=== PATIENT | male | born 1970 | race Two or more races ===

== ENCOUNTER 2019-04-28 10:13 | Emergency (ER) | payer OTHER ==
[2019-04-28] MEDS ORDERED: Sodium Chloride 0.9% 2.5 ML Syringe FLUSH PRN (10:21)
[2019-04-28] MEDS ORDERED: Sodium Chloride 0.9% 10 ML Syringe FLUSH PRN (10:21)
[2019-04-28] MEDS ORDERED: Alum Hydrox/Mag Hydrox/Simeth 15 ML, Lidocaine 2% 5 ML PO ONE ×2 (10:21)
[2019-04-28] MEDS ORDERED: Famotidine 20 MG/2 ML SDV IVPUSH ONE (10:21)
[2019-04-28] MEDS ORDERED: Nitroglycerin 0.4 MG Tab.SL SL PRN (10:51)
[2019-04-28] MEDS ORDERED: Aspirin 81 MG Tab.Chew PO ONE (10:51)
--- NOTE | 2019-04-28 10:51 | EDM.PDOC ---
ED HPI GENERAL MEDICAL PROBLEM - General Chief Complaint: Chest Pain Stated Complaint: CHEST DISCOMFORT Time Seen by Provider: 04/28/19 10:14 Source of Information: Reports: Patient History Limitations: Reports: No Limitations - History of Present Illness INITIAL COMMENTS - FREE TEXT/NARRATIVE: History of present illness: []Patient has had 5 days of constant epigastric and chest pain that is waxing and waning but has not subsided. He denies any sweating, shortness of breath, dizziness, nausea or vomiting. He has a known history of high blood pressure but does not take medications for it any longer. He took some in the past that made his face swell and never restarted any blood pressure meds. Review of systems: As per history of present illness and below otherwise all systems reviewed and negative. Past medical history: As per history of present illness and as reviewed below otherwise noncontributory. Surgical history: As per history of present illness and as reviewed below otherwise noncontributory. Social history: No reported history of drug or alcohol abuse. Family history: As per history of present illness and as reviewed below otherwise noncontributory. Physical exam: General: Well developed, well nourished in NAD HEENT: Atraumatic, normocephalic, pupils reactive, negative for conjunctival pallor or scleral icterus, mucous membranes moist, throat clear, neck supple, nontender, trachea midline. Lungs: Clear to auscultation, breath sounds equal bilaterally, chest nontender. Heart: S1S2, regular, negative for clicks, rubs, or JVD. Abdomen: NABS, Soft, nondistended, nontender. Negative for masses or hepatosplenomegaly. Negative for costovertebral tenderness. Pelvis: Stable nontender. Genitourinary: Deferred. Rectal: Deferred. Extremities: Atraumatic, negative for cords or calf pain. Neurovascular unremarkable. Neuro: Awake, alert, oriented. Cranial nerves II through XII unremarkable. Cerebellum unremarkable. Motor and sensory unremarkable throughout. Exam nonfocal. Skin:warm and dry Diagnostics: EKG, as chest x-ray, CBC, chemistry, troponin Therapeutics: GI cocktail with relief, one nitroglycerin improved blood pressure ED Course: Improved Impression: Uncontrolled hypertension and chest pain Prescriptions: Metoprolol Plan: Take a baby aspirin a day,Take meds as directed, follow up with your primary care physician, return to ER if symptoms worsen or change. Definitive disposition and diagnosis as appropriate pending reevaluation and review of above. Chest Pain Score (Numeric/FACES): 5 - Related Data Allergies Allergy/AdvReac Type Severity Reaction Status Date / Time No Known Allergies Allergy Verified 04/28/19 10:24 Home Meds: Home Meds Metoprolol Tartrate 25 mg PO BID #15 tablet 04/28/19 [Rx] Past Medical History Cardiovascular History: Reports: Hypertension - Past Surgical History Cardiovascular Surgical History: Reports: None Social & Family History - Family History Family Medical History: Noncontributory - Tobacco Use Smoking Status *Q: Never Smoker - Recreational Drug Use Recreational Drug Use: No ED ROS GENERAL - Review of Systems Review Of Systems: See Below ED EXAM, GENERAL - Physical Exam Exam: See Below Course - Vital Signs Last Recorded V/S: Last Vital Signs Temp 97.4 F 04/28/19 10:25 Pulse 88 04/28/19 11:11 Resp 16 04/28/19 11:11 BP 155/96 H 04/28/19 11:11 Pulse Ox 95 04/28/19 11:11 - Orders/Labs/Meds Orders: Active Orders 24 hr Category Date Time Status Cardiac Monitoring [RC] . DIRECTED Care 04/28/19 10:20 Active Nitroglycerin [Nitrostat] Med 04/28/19 10:51 Active 0.4 mg SL Q5M PRN Sodium Chloride 0.9% [Saline Flush] Med 04/28/19 10:21 Active 10 ml FLUSH ASDIRECTED PRN Sodium Chloride 0.9% [Saline Flush] Med 04/28/19 10:21 Active 2.5 ml FLUSH ASDIRECTED PRN Saline Lock Insert [OM.PC] Stat Oth 04/28/19 10:20 Ordered Medication Orders Nitroglycerin (Nitrostat) 0.4 mg SL Q5M PRN PRN Reason: Chest Pain Last Admin: 04/28/19 11:05 Dose: 0.4 mg Sodium Chloride (Saline Flush) 10 ml FLUSH ASDIRECTED PRN PRN Reason: Keep Vein Open Sodium Chloride (Saline Flush) 2.5 ml FLUSH ASDIRECTED PRN PRN Reason: Keep Vein Open Labs: Laboratory Tests 04/28/19 04/28/19 Range/Units 10:18 10:18 WBC 7.05 (4.0-11.0) K/uL RBC 5.42 (4.50-5.90) M/uL Hgb 16.6 (13.0-17.0) g/dL Hct 47.7 (38.0-50.0) % MCV 88.0 (80.0-98.0) fL MCH 30.6 (27.0-32.0) pg MCHC 34.8 (31.0-37.0) g/dL RDW Std Deviation 43.5 (28.0-62.0) fl RDW Coeff of [place]aga 14 (11.0-15.0) % Plt Count 245 (150-400) K/uL MPV 10.60 (7.40-12.00) fL Neut % (Auto) 55.0 (48.0-80.0) % Lymph % (Auto) 30.2 (16.0-40.0) % [place] % (Auto) 10.4 (0.0-15.0) % Eos % (Auto) 3.7 (0.0-7.0) % Baso % (Auto) 0.7 (0.0-1.5) % Neut # (Auto) 3.9 (1.4-5.7) K/uL Lymph # (Auto) 2.1 (0.6-2.4) K/uL [place] # (Auto) 0.7 (0.0-0.8) K/uL Eos # (Auto) 0.3 (0.0-0.7) K/uL Baso # (Auto) 0.1 (0.0-0.1) K/uL Nucleated RBC % 0.0 /100WBC Nucleated RBCs # 0 K/uL Sodium 141 (136-148) mmol/L Potassium 3.3 L (3.5-5.1) mmol/L Chloride 104 (98-107) mmol/L Carbon Dioxide 27.8 (21.0-32.0) mmol/L BUN 13 (7.0-18.0) mg/dL Creatinine 1.0 (0.8-1.3) mg/dL Est Cr Clr Drug Dosing 86.30 mL/min Estimated GFR (MDRD) > 60.0 ml/min Glucose 113 H (74-106) mg/dL Calcium 8.2 L (8.5-10.1) mg/dL Total Bilirubin 0.4 (0.2-1.0) mg/dL AST 21 (15-37) IU/L ALT 32 (14-63) IU/L Alkaline Phosphatase 157 H (46-116) U/L Troponin I < 0.050 (0.000-0.056) ng/mL Total Protein 7.4 (6.4-8.2) g/dL Albumin 3.5 (3.4-5.0) g/dL Globulin 3.9 (2.6-4.0) g/dL Albumin/Globulin Ratio 0.9 (0.9-1.6) Meds: Medications Generic Name Dose Route Start Last Admin Trade Name Freq PRN Reason Stop Dose Admin Nitroglycerin 0.4 mg 04/28/19 10:51 04/28/19 11:05 Nitrostat SL 0.4 mg Q5M PRN Administration Chest Pain Sodium Chloride 10 ml 04/28/19 10:21 Saline Flush FLUSH ASDIRECTED PRN Keep Vein Open Sodium Chloride 2.5 ml 04/28/19 10:21 Saline Flush FLUSH ASDIRECTED PRN Keep Vein Open Discontinued Medications Generic Name Dose Route Start Last Admin Trade Name Freq PRN Reason Stop Dose Admin Aspirin 324 mg 04/28/19 10:51 04/28/19 11:04 Aspirin PO 04/28/19 10:52 324 mg ONETIME ONE Administration Al Hydroxide/Mg Hydroxide 15 0 ml 04/28/19 10:21 04/28/19 10:31 ml/ Lidocaine HCl 5 ml PO 04/28/19 10:22 1 each ONETIME ONE Administration Famotidine 20 mg 04/28/19 10:21 04/28/19 10:33 Pepcid IVPUSH 04/28/19 10:22 20 mg ONETIME ONE Administration Departure - Departure Time of Disposition: 11:15 Disposition: Home, Self-Care 01 Condition: Good Clinical Impression: Uncontrolled hypertension Prescriptions: Metoprolol Tartrate 25 mg PO BID #15 tablet Forms: ED Department Discharge Additional Instructions: The following information is given to patients seen in the emergency department who are being discharged to home. This information is to outline your options for follow-up care. We provide all patients seen in our emergency department with a follow-up referral. The need for follow-up, as well as the timing and circumstances, are variable depending upon the specifics of your emergency department visit. If you don't have a primary care physician on staff, we will provide you with a referral. We always advise you to contact your personal physician following an emergency department visit to inform them of the circumstance of the visit and for follow-up with them and/or the need for any referrals to a consulting specialist. The emergency department will also refer you to a specialist when appropriate. This referral assures that you have the opportunity for follow-up care with a specialist. All of these measure are taken in an effort to provide you with optimal care, which includes your follow-up. Under all circumstances we always encourage you to contact your private physician who remains a resource for coordinating your care. When calling for follow-up care, please make the office aware that this follow-up is from your recent emergency room visit. If for any reason you are refused follow-up, please contact the [facility] Emergency Department at and asked to speak to the emergency department charge nurse. Take meds as directed, follow up with your primary care physician, return to ER if symptoms worsen or change. [facility] [address] [place] [address] - My Orders Last 24 Hours: My Active Orders 04/28/19 10:20 Cardiac Monitoring [RC] . DIRECTED Saline Lock Insert [OM.PC] Stat 04/28/19 10:21 Sodium Chloride 0.9% [Saline Flush] 10 ml FLUSH ASDIRECTED PRN Sodium Chloride 0.9% [Saline Flush] 2.5 ml FLUSH ASDIRECTED PRN 04/28/19 10:51 Nitroglycerin [Nitrostat] 0.4 mg SL Q5M PRN - Assessment/Plan Last 24 Hours: My Active Orders 04/28/19 10:20 Cardiac Monitoring [RC] . DIRECTED Saline Lock Insert [OM.PC] Stat 04/28/19 10:21 Sodium Chloride 0.9% [Saline Flush] 10 ml FLUSH ASDIRECTED PRN Sodium Chloride 0.9% [Saline Flush] 2.5 ml FLUSH ASDIRECTED PRN 04/28/19 10:51 Nitroglycerin [Nitrostat] 0.4 mg SL Q5M PRN
[2019-04-28 11:02] LABS: BLOOD UREA NITROGEN,BUN 13 mg/dL (7.0-18.0); CARBON DIOXIDE,CO2 27.8 mmol/L (21.0-32.0); CHLORIDE,CL 104 mmol/L (98-107); GLUCOSE RANDOM 113 mg/dL (74-106); POTASSIUM,K 3.3 mmol/L (3.5-5.1); SODIUM,NA 141 mmol/L (136-148)
--- NOTE | 2019-04-28 11:13 | CR ---
INDICATION: Chest pain and tightness. TECHNIQUE: AP portable chest x-ray. FINDINGS: Heart is upper limits of normal. No focal dense infiltrate or consolidation in either lung. Mild peribronchial cuffing in the right hilar region could be related bronchial inflammation or edema. Shallow inspiration. Chest otherwise negative. Dictated by Fausto Neff MD @ Apr 28 2019 11:10AM Signed by Dr. Fausto Neff @ Apr 28 2019 11:11AM
== END 2019-04-28 11:36 | disposition home or self-care (01) ==
LOC: MW.ED 10:13
DX: R07.9 Chest pain, unspecified (principal); I10 Essential (primary) hypertension; Z79.899 Other long term (current) drug therapy
CPT/HCPCS: 36415; 71045; 80053; 84484; 85025; 93005; 96374; 99285; A9270; S0028; J3490

== ENCOUNTER 2019-05-01 23:03 | Emergency (ER) | payer OTHER ==
[2019-05-01] MEDS ORDERED: Aspirin 81 MG Tab.Chew PO ONE (23:18)
--- NOTE | 2019-05-01 23:20 | EDM.PDOC ---
<Elsy Logan - Last Filed: 05/01/19 23:53> ED HPI GENERAL MEDICAL PROBLEM - General Chief Complaint: Chest Pain Stated Complaint: PRESSURE ON CHEST Time Seen by Provider: 05/01/19 23:04 Source of Information: Reports: Patient History Limitations: Reports: No Limitations - History of Present Illness INITIAL COMMENTS - FREE TEXT/NARRATIVE: HISTORY AND PHYSICAL: History of present illness: Patient is a 48-year-old male who presents to the ED today with concern of a 4 out of 10 chest discomfort on the right side of the sternum and radiates into his back. Patient states his symptoms have been ongoing since the last time he was seen in the ED and have not gone away. Patient states his pain is worse with activity and better with rest. Patient was seen on 04/28/19 and had a cardiac workup at that time. Patient states since then the chest pain hasn't gotten worse but also hasn't gotten better. Patient states he has been taking the blood pressure medication that was prescribed to him that his blood pressure has still been high. Patient denies any other symptoms or concerns or any other health history. Patient denies fever, chills, shortness of breath, or cough. Denies headache, neck stiff ness, change in vision, syncope, or near syncope. Denies nausea, vomiting, abdominal pain, diarrhea, constipation, or dysuria. Has not noted any blood in urine or stool. Patient has been eating and drinking appropriately. Review of systems: As per history of present illness and below otherwise all systems reviewed and negative. Past medical history: As per history of present illness and as reviewed below otherwise noncontributory. Surgical history: As per history of present illness and as reviewed below otherwise noncontributory. Social history: See social history for further information Family history: As per history of present illness and as reviewed below otherwise noncontributory. Physical exam: General: Patient is alert, oriented, and in no acute distress. Patient laying comfortably on exam table. HEENT: Atraumatic, normocephalic, pupils equal and reactive bilaterally, negative for conjunctival pallor or scleral icterus, mucous membranes moist, TMs normal bilaterally, throat clear, neck supple, nontender, trachea midline. No drooling or trismus noted. No meningeal signs. No hot potato voice noted. Lungs: Clear to auscultation, breath sounds equal bilaterally, chest nontender. Heart: S1S2, regular rate and rhythm without overt murmur Abdomen: Soft, nondistended, nontender. Negative for masses or hepatosplenomegaly. Negative for costovertebral tenderness. Pelvis: Stable nontender. Genitourinary: Deferred. Rectal: Deferred. Skin: Intact, warm, dry. No lesions or rashes noted. Extremities: Atraumatic, negative for cords or calf pain. Neurovascular unremarkable. Neuro: Awake, alert, oriented. Cranial nerves II through XII unremarkable. Cerebellum unremarkable. Motor and sensory unremarkable throughout. Exam nonfocal. Notes: Dr. Tesfaye has assumed care of patient and will follow remaining diagnostics and disposition . Diagnostics: CBC, CMP, UA, EKG, chest x-ray, troponin Therapeutics: Saline lock, aspirin, nitroglycerin Prescription: Impression: Chest pain Hypertension Plan: Definitive disposition and diagnosis as appropriate pending reevaluation and review of above. chest Pain Score (Numeric/FACES): 4 - Related Data Allergies Allergy/AdvReac Type Severity Reaction Status Date / Time No Known Allergies Allergy Verified 05/01/19 23:19 Home Meds: Home Meds Metoprolol Tartrate 25 mg PO BID #15 tablet 04/28/19 [Rx] Past Medical History Cardiovascular History: Reports: Hypertension - Past Surgical History Cardiovascular Surgical History: Reports: None Social & Family History - Family History Family Medical History: Noncontributory ED ROS GENERAL - Review of Systems Review Of Systems: ROS reveals no pertinent complaints other than HPI. ED EXAM, GENERAL - Physical Exam Exam: See Below (See dictation) Course - Vital Signs Last Recorded V/S: Last Vital Signs Temp 35.7 C 05/01/19 23:07 Pulse 62 05/02/19 00:51 Resp 18 05/02/19 00:51 BP 141/94 H 05/02/19 00:51 Pulse Ox 97 05/02/19 00:51 - Orders/Labs/Meds Orders: Active Orders 24 hr Category Date Time Status EKG Documentation Completion [RC] STAT Care 05/01/19 23:05 Active Labs: Laboratory Tests 05/01/19 05/01/19 05/01/19 Range/Units 23:25 23:25 23:25 WBC 7.65 (4.0-11.0) K/uL RBC 5.33 (4.50-5.90) M/uL Hgb 16.4 (13.0-17.0) g/dL Hct 46.6 (38.0-50.0) % MCV 87.4 (80.0-98.0) fL MCH 30.8 (27.0-32.0) pg MCHC 35.2 (31.0-37.0) g/dL RDW Std Deviation 42.5 (28.0-62.0) fl RDW Coeff of [place]aga 13 (11.0-15.0) % Plt Count 254 (150-400) K/uL MPV 10.60 (7.40-12.00) fL Neut % (Auto) 57.0 (48.0-80.0) % Lymph % (Auto) 26.5 (16.0-40.0) % [place] % (Auto) 12.8 (0.0-15.0) % Eos % (Auto) 3.0 (0.0-7.0) % Baso % (Auto) 0.7 (0.0-1.5) % Neut # (Auto) 4.4 (1.4-5.7) K/uL Lymph # (Auto) 2.0 (0.6-2.4) K/uL [place] # (Auto) 1.0 H (0.0-0.8) K/uL Eos # (Auto) 0.2 (0.0-0.7) K/uL Baso # (Auto) 0.1 (0.0-0.1) K/uL Nucleated RBC % 0.0 /100WBC Nucleated RBCs # 0 K/uL INR 0.95 Sodium (136-148) mmol/L Potassium (3.5-5.1) mmol/L Chloride (98-107) mmol/L Carbon Dioxide (21.0-32.0) mmol/L BUN (7.0-18.0) mg/dL Creatinine (0.8-1.3) mg/dL Est Cr Clr Drug Dosing mL/min Estimated GFR (MDRD) ml/min Glucose (74-106) mg/dL Calcium (8.5-10.1) mg/dL Total Bilirubin (0.2-1.0) mg/dL AST (15-37) IU/L ALT (14-63) IU/L Alkaline Phosphatase (46-116) U/L Troponin I (0.000-0.056) ng/mL Total Protein (6.4-8.2) g/dL Albumin (3.4-5.0) g/dL Globulin (2.6-4.0) g/dL Albumin/Globulin Ratio (0.9-1.6) Urine Color YELLOW Urine Appearance CLEAR Urine pH 6.0 (5.0-8.0) Ur Specific [place] 1.025 (1.001-1.035) Urine Protein TRACE H (NEGATIVE) mg/dL Urine Glucose (UA) NEGATIVE (NEGATIVE) mg/dL Urine Ketones NEGATIVE (NEGATIVE) mg/dL Urine Occult Blood SMALL H (NEGATIVE) Urine Nitrite NEGATIVE (NEGATIVE) Urine Bilirubin NEGATIVE (NEGATIVE) Urine Urobilinogen 0.2 (<2.0) EU/dL Ur Leukocyte Esterase NEGATIVE (NEGATIVE) Urine RBC 1-3 (0-2/HPF) Urine WBC 0-1 (0-5/HPF) Ur Epithelial Cells RARE (NONE-FEW) Urine Bacteria RARE (NEGATIVE) 05/01/19 Range/Units 23:25 WBC (4.0-11.0) K/uL RBC (4.50-5.90) M/uL Hgb (13.0-17.0) g/dL Hct (38.0-50.0) % MCV (80.0-98.0) fL MCH (27.0-32.0) pg MCHC (31.0-37.0) g/dL RDW Std Deviation (28.0-62.0) fl RDW Coeff of [place] (11.0-15.0) % Plt Count (150-400) K/uL MPV (7.40-12.00) fL Neut % (Auto) (48.0-80.0) % Lymph % (Auto) (16.0-40.0) % [place] % (Auto) (0.0-15.0) % Eos % (Auto) (0.0-7.0) % Baso % (Auto) (0.0-1.5) % Neut # (Auto) (1.4-5.7) K/uL Lymph # (Auto) (0.6-2.4) K/uL [place] # (Auto) (0.0-0.8) K/uL Eos # (Auto) (0.0-0.7) K/uL Baso # (Auto) (0.0-0.1) K/uL Nucleated RBC % /100WBC Nucleated RBCs # K/uL INR Sodium 140 (136-148) mmol/L Potassium 3.4 L (3.5-5.1) mmol/L Chloride 105 (98-107) mmol/L Carbon Dioxide 26.1 (21.0-32.0) mmol/L BUN 20 H (7.0-18.0) mg/dL Creatinine 1.0 (0.8-1.3) mg/dL Est Cr Clr Drug Dosing 86.30 mL/min Estimated GFR (MDRD) > 60.0 ml/min Glucose 117 H (74-106) mg/dL Calcium 8.3 L (8.5-10.1) mg/dL Total Bilirubin 0.3 (0.2-1.0) mg/dL AST 22 (15-37) IU/L ALT 39 (14-63) IU/L Alkaline Phosphatase 191 H (46-116) U/L Troponin I < 0.050 (0.000-0.056) ng/mL Total Protein 7.8 (6.4-8.2) g/dL Albumin 3.6 (3.4-5.0) g/dL Globulin 4.2 H (2.6-4.0) g/dL Albumin/Globulin Ratio 0.9 (0.9-1.6) Urine Color Urine Appearance Urine pH (5.0-8.0) Ur Specific [place] (1.001-1.035) Urine Protein (NEGATIVE) mg/dL Urine Glucose (UA) (NEGATIVE) mg/dL Urine Ketones (NEGATIVE) mg/dL Urine Occult Blood (NEGATIVE) Urine Nitrite (NEGATIVE) Urine Bilirubin (NEGATIVE) Urine Urobilinogen (<2.0) EU/dL Ur Leukocyte Esterase (NEGATIVE) Urine RBC (0-2/HPF) Urine WBC (0-5/HPF) Ur Epithelial Cells (NONE-FEW) Urine Bacteria (NEGATIVE) Meds: Medications Discontinued Medications Generic Name Dose Route Start Last Admin Trade Name Freq PRN Reason Stop Dose Admin Aspirin 324 mg 05/01/19 23:18 05/01/19 23:46 Aspirin PO 05/01/19 23:19 324 mg ONETIME ONE Administration Nitroglycerin 0.4 mg 05/01/19 23:18 05/02/19 00:16 Nitrostat SL 0.4 mg Q5M PRN Administration Chest Pain Departure - Departure Disposition: Home, Self-Care 01 Clinical Impression: Atypical chest pain Hypertension Qualifiers: Hypertension type: unspecified Qualified Code(s): I10 - Essential (primary) hypertension - Discharge Information Instructions: Nonspecific Chest Pain, [id number], Hypertension Referrals: PCP,None [Primary Care Provider] - Forms: ED Department Discharge Additional Instructions: The following information is given to patients seen in the emergency department who are being discharged to home. This information is to outline your options for follow-up care. We provide all patients seen in our emergency department with a follow-up referral. The need for follow-up, as well as the timing and circumstances, are variable depending upon the specifics of your emergency department visit. If you don't have a primary care physician on staff, we will provide you with a referral. We always advise you to contact your personal physician following an emergency department visit to inform them of the circumstance of the visit and for follow-up with them and/or the need for any referrals to a consulting specialist. The emergency department will also refer you to a specialist when appropriate. This referral assures that you have the opportunity for followup care with a specialist. All of these measure are taken in an effort to provide you with optimal care, which includes your followup. Under all circumstances we always encourage you to contact your private physician who remains a resource for coordinating your care. When calling for followup care, please make the office aware that this follow-up is from your recent emergency room visit. If for any reason you are refused follow-up, please contact the [facility] emergency department at and ask to speak to the emergency department charge nurse. [address] [place] [address] Please keep your appointment with Dr. Villasenor on Thursday as scheduled and watch her diet avoiding foods that are high in sodium and extra sodium in her diet. Please continue with your current medication and discussed with Dr. Villasenor you' re to ER visits per year paperwork with use of that he can see testing results. Discussed with Dr. Villasenor adjustment of your medications and further evaluation and return to ER as needed and as discussed <Court Tesfaye - Last Filed: 05/02/19 00:57> ED HPI GENERAL MEDICAL PROBLEM - History of Present Illness INITIAL COMMENTS - FREE TEXT/NARRATIVE: This is Dr. Tesfaye dictating an addendum note as I assumed care of this case at 12 midnight. I have reviewed the patient's ED visit from April 28 where he presented with 5 days of epigastric and mid lower chest pain and had a full workup that was negative. On that visit he had received 1 nitroglycerin sublingual which improved his blood pressure and he was discharged home on metoprolol and an aspirin a day. The patient told the PA that he has been compliant with those meds but he has not followed up in the clinic. He presents with the above history and physical. He says the pain has been constant since the last ED visit and seems to get worse with activities and better with rest. He abdominal pain no shortness of breath no fevers or chills no neurosensory changes or weakness in his extremities and no abdominal pain. He is eating and drinking normally. He rated his pain this evening as a 4/10 and after one sublingual nitroglycerin the patient says the pain went down to a 0/10. Nursing gave him the 2 subsequent nitros just to see if it would help his blood pressure. He describes the pain as to the right of his sternum today per above history. We are currently waiting the rest of the lab tests and chest x-ray and further care to be initiated from there. I will review his blood pressure trends here and plan intervention I personally interviewed the patient and he is telling me that the chest pain is not constant but comes and goes depending on certain activities and certain positions. He has no headache no dizziness or lightheadedness no abdominal pain no urinary issues or leg swelling and no neurosensory changes or weakness in his extremities. He has no back pain and no shortness of breath on my interview. When I was in the room his repeat blood pressure was 135/89. He tells me that he has been compliant with his metoprolol and I've informed him that this may not be the right drug for him and that he would need to have indications started and/or adjusted in the clinic in a slow stepwise fashion. He says he does not eat a lot of processed foods and has been trying to eat more healthfully but he has had a history of high or sodium intake in the past. He tells me he has an appointment with Dr. Villasenor at [facility] [place] on Thursday and have encouraged him to eat that appointment and bring all of his discharge paperwork with him that Dr. Villasenor can review it. I told him that if his workup is negative plan on discharge home as he currently feels much improved that his blood pressure is down and the pain is gone. Significant social history and he has no significant family history for cardiac disease. Blood pressure in the right arm was 141/94 and blood pressure in the left arm was 133/87 Impression: Atypical episodic chest pain with hypertension ED ROS GENERAL - Review of Systems Review Of Systems: ROS reveals no pertinent complaints other than HPI. Departure - Departure Time of Disposition: 00:57
[2019-05-01] MEDS: Nitroglycerin 0.4 MG Tab.SL SL PRN (23:45)
[2019-05-02] MEDS: Nitroglycerin 0.4 MG Tab.SL SL PRN ×2 (00:07→00:16)
[2019-05-02 00:14] LABS: BLOOD UREA NITROGEN,BUN 20 mg/dL (7.0-18.0); CARBON DIOXIDE,CO2 26.1 mmol/L (21.0-32.0); CHLORIDE,CL 105 mmol/L (98-107); GLUCOSE RANDOM 117 mg/dL (74-106); POTASSIUM,K 3.4 mmol/L (3.5-5.1); SODIUM,NA 140 mmol/L (136-148)
--- NOTE | 2019-05-02 00:41 | CR ---
INDICATION: Chest pain COMPARISON: 04/28/2019 FINDINGS: An erect single view of the chest was obtained at 23 36 hours. The lungs remain clear. No focal or diffuse infiltrates are present. The heart remains normal in size. The mediastinum is normal in appearance. The osseous structures are normal in appearance for the patient`s age. IMPRESSION: Normal chest single view. Dictated by Fortunato Lao MD @ May 02 2019 12:38AM Signed by Dr. Fortunato Lao @ May 02 2019 12:39AM
== END 2019-05-02 01:04 | disposition home or self-care (01) ==
LOC: MW.ED 23:03
DX: R07.89 Other chest pain (principal); I10 Essential (primary) hypertension; Z79.899 Other long term (current) drug therapy
CPT/HCPCS: 36415; 71045; 80053; 81001; 84484; 85025; 85610; 93005; 99285; A9270; 99284

== ENCOUNTER 2024-07-20 15:04 | Emergency (ER) | payer BC ==
[2024-07-20] MEDS ORDERED: Sodium Chloride 0.9% 10 ML Syringe FLUSH PRN (15:11)
[2024-07-20] MEDS ORDERED: Acetaminophen 500 MG Tab PO ONE (15:31)
[2024-07-20 15:35] LABS: BASOPHILS ABSOLUTE AUTO 0.05 K/uL (0.00-0.20); BASOPHILS PERCENT AUTO 0.8 % (0.0-1.0); EOSINOPHILS ABSOLUTE AUTO 0.24 K/uL (0.00-0.45); EOSINOPHILS PERCENT AUTO 3.9 % (0.0-6.0); HEMATOCRIT 46.4 % (42.0-52.0); HEMOGLOBIN 15.8 g/dL (14.0-18.0); IMMATURE GRAN ABSOLUTE AUTO 0.02 K/uL (0.00-0.05); IMMATURE GRAN PERCENT AUTO 0.3 % (0.0-0.4); LYMPHOCYTES ABSOLUTE AUTO 2.08 K/uL (1.00-4.80); LYMPHOCYTES PERCENT AUTO 33.4 % (24.0-44.0); MEAN CORPUSCULAR HGB CONC 34.1 g/dL (32.0-36.0); MEAN PLATELET VOLUME 10.2 fL (9.4-12.4); MONOCYTES ABSOLUTE AUTO 0.69 K/uL (0.00-0.80); MONOCYTES PERCENT AUTO 11.1 % (0.0-8.0); NEUTROPHILS ABSOLUTE AUTO 3.14 K/uL (1.80-7.70); NEUTROPHILS PERCENT AUTO 50.5 % (41.0-71.0); PLATELET COUNT,PLT 217 K/uL (150-400); RED BLOOD CELL COUNT 5.27 M/uL (4.52-5.90); WHITE BLOOD CELL COUNT,WBC 6.22 K/uL (3.9-11.3)
[2024-07-20] MEDS: Acetaminophen 500 MG Tab PO ONE (15:44)
[2024-07-20 15:45] LABS: APPEARANCE,URINE CLEAR; BILIRUBIN,URINE NEGATIVE (NEGATIVE); COLOR,URINE YELLOW; GLUCOSE,URINE NEGATIVE (NEGATIVE); KETONES,URINE NEGATIVE (NEGATIVE); LEUKOCYTE ESTERASE,URINE NEGATIVE (NEGATIVE); NITRITE,URINE NEGATIVE (NEGATIVE); OCCULT BLOOD,URINE TRACE-INTACT (NEGATIVE); PH,URINE 6.5 (5.0-8.0); PROTEIN,URINE TRACE mg/dL (NEGATIVE); UROBILINOGEN,URINE 0.2 EU/dL (<2.0)
[2024-07-20] MEDS: Ondansetron 4 MG/2 ML SDV IVPUSH ONE (15:45)
[2024-07-20] MEDS: Lisinopril 10 MG Tab PO ONE (15:46)
[2024-07-20] MEDS: Labetalol 100 MG/20 ML MDV IVPUSH ONE (15:46)
[2024-07-20 15:58] LABS: ALBUMIN 3.7 g/dL (3.4-5.0); BILIRUBIN TOTAL 0.4 mg/dL (0.2-1.0); CALCIUM 8.8 mg/dL (8.5-10.1); CARBON DIOXIDE,CO2 31.1 mmol/L (21.0-32.0); EST CRCL DRUG DOSING (CG) 81.71 mL/min; POTASSIUM,K 3.7 mmol/L (3.5-5.1); PROTEIN TOTAL,TP 7.4 g/dL (6.4-8.2)
[2024-07-20 16:00] LABS: AMORPHOUS SEDIMENT,URINE MODERATE (NEGATIVE); BACTERIA,URINE FEW (NEGATIVE); EPITHELIAL CELLS,URINE RARE (NONE-FEW); WBC,URINE 0-1 (0-5/HPF)
[2024-07-20] MEDS: Iopamidol 755 MG/ML 500 ML Multipack Bottle IVPUSH STA (16:30)
== END 2024-07-20 18:03 | disposition home or self-care (01) ==
LOC: MW.ED 15:04
DX: I16.0 Hypertensive urgency (principal); R42 Dizziness and giddiness; Z79.899 Other long term (current) drug therapy; Z91.199 Patient's noncompliance with other medical treatment and regimen due to unspecified reason
CPT/HCPCS: 36415; 70450; 70496; 70498; 80053; 81001; 83690; 83735; 85025; 87428; 93005; 96374; 96375; 99284; A9270; J1920; J2405; Q9967